=== PATIENT | male | born 1985 | race Native Hawaiian/Other Pacific Islander ===

== ENCOUNTER 2020-06-21 10:48 | Emergency (ER) | payer OTHER ==
[~2020-06-21] VITALS: Ht 180.3 cm; Wt 95.3 kg
[2020-06-21 11:00] VITALS: TEMP 98.2
[2020-06-21 12:00] VITALS: BP 122/75
== END 2020-06-21 12:00 | disposition home or self-care (01) ==
LOC: ED 10:48
PROC: 0HQ1XZZ Repair Face Skin, External Approach (ICD-10-PCS; principal; 2020-06-21)
DX: S01.81XA Laceration without foreign body of other part of head, initial encounter (principal); W22.09XA Striking against other stationary object, initial encounter; Y92.89 Other specified places as the place of occurrence of the external cause
CPT/HCPCS: 99282